=== PATIENT | male | born 1995 | race Caucasian/White ===

== ENCOUNTER 2017-06-03 11:42 | Emergency (ER) | payer MEDICAID ==
[2017-06-03] MEDS: LIDOCAINE 1% (MDV) 20 ML INJ SC (12:08)
== END 2017-06-03 13:53 | disposition home or self-care (01) ==
LOC: FTE 11:42
DX: S61.411A Laceration without foreign body of right hand, initial encounter (principal); W26.0XXA Contact with knife, initial encounter; Y92.9 Unspecified place or not applicable
CPT/HCPCS: 12001; 99282-25

== ENCOUNTER 2017-06-15 16:47 | Emergency (ER) | payer MEDICAID | END 2017-06-15 17:10 | disposition home or self-care (01) | LOC: E/R 17:10 | DX: Z48.02 Encounter for removal of sutures (principal) | CPT/HCPCS: 99281; Z7502 ==

== ENCOUNTER 2018-09-14 12:37 | Emergency (ER) | payer BC, MEDICAID ==
[2018-09-14] MEDS: LIDOCAINE 4% CR TOP (14:01)
[2018-09-14] MEDS: NEOMYC/POLYMYX/BACIT 30 GM OINT TOP (14:26)
== END 2018-09-14 16:31 | disposition home or self-care (01) ==
LOC: FTE 16:31
DX: S01.81XA Laceration without foreign body of other part of head, initial encounter (principal); S60.512A Abrasion of left hand, initial encounter; V18.4XXA Pedal cycle driver injured in noncollision transport accident in traffic accident, initial encounter
CPT/HCPCS: 12013; 70110; 73130-LT; 99284-25

== ENCOUNTER 2018-09-16 09:10 | Emergency (ER) | payer BC | END 2018-09-16 09:51 | disposition home or self-care (01) | LOC: FTE 09:51 | DX: Z48.01 Encounter for change or removal of surgical wound dressing (principal) | CPT/HCPCS: 99281; Z7502 ==

== ENCOUNTER 2018-09-25 10:11 | Emergency (ER) | payer BC | END 2018-09-25 10:52 | disposition home or self-care (01) | LOC: FTE 10:11 | DX: Z48.02 Encounter for removal of sutures (principal) | CPT/HCPCS: 99281; Z7502 ==